=== PATIENT | male | born 1960 | race Caucasian/White ===

== ENCOUNTER 2018-08-20 10:37 | Emergency (ER) | payer MEDICARE ==
[~2018-08-20] VITALS: Ht 167.6 cm; Wt 96.0 kg
[2018-08-20] MEDS ORDERED: NEURONTIN600 M1 PO (11:08)
[2018-08-20 11:14] LABS: MEAN PLATELET VOLUME 10.8 fl (7.4-10.4); PLATELET COUNT 153 K/mm3 (130-400); RED BLOOD COUNT 3.32 M/mm3 (4.20-5.60); RED CELL DISTRIBUTION WIDTH 19.5 % (11.5-14.5); WHITE BLOOD COUNT 10.5 K/mm3 (4.8-10.8)
[2018-08-20 11:18] LABS: HEMATOCRIT 22.1 % (42.0-52.0); MEAN CELL VOLUME 67 fl (78-100); MEAN CORPUSCULAR HEMOGLOBIN 18 pg (27-31); MEAN CORPUSCULAR HGB CONC 27 g/dL (33-37)
[2018-08-20 11:24] LABS: PROTHROMBIN TIME 12.3 SECONDS (9.0-12.0)
[2018-08-20 11:27] LABS: ALBUMIN 3.4 g/dL (3.5-5.0); CALCIUM 8.8 mg/dL (8.4-10.2); POTASSIUM 3.6 mmol/L (3.6-5.0); TOTAL BILIRUBIN 1.2 mg/dL (0.2-1.3); TOTAL PROTEIN 7.7 g/dL (6.3-8.2)
[2018-08-20 11:39] LABS: LYMPHOCYTE 12 % (20-51); MONOCYTE 13 % (3-10); NEUTROPHILS 75 % (42-75)
[2018-08-20 11:40] LABS: HYPOCHROMIA 2+; MICROCYTOSIS 2+; POLYCHROMASIA 1+; TARGET CELLS 2+
[2018-08-20 11:41] LABS: TROPONIN-I < 0.03 ng/mL (0.00-0.06)
[2018-08-20 11:43] LABS: URINE APPEARANCE CLEAR; URINE BILIRUBIN NEGATIVE (NEGATIVE); URINE BLOOD NEGATIVE (NEGATIVE); URINE COLOR YELLOW; URINE GLUCOSE NEGATIVE (NEGATIVE); URINE KETONE NEGATIVE (NEGATIVE); URINE LEUKOCYTE ESTERASE NEGATIVE (NEGATIVE); URINE NITRATE NEGATIVE (NEGATIVE); URINE PROTEIN(semi-quant) TRACE mg/dL (NEGATIVE); URINE UROBILINOGEN NORMAL (NORMAL); URINE WBC 0-1 /hpf (0-3)
[2018-08-20 14:42] VITALS: BP 155/55
== END 2018-08-20 14:31 | disposition short-term general hospital (02) ==
LOC: ED 10:37
PROVIDERS: Nurse Practitioner Primary Care
DX: K76.89 Other specified diseases of liver (principal); D64.9 Anemia, unspecified; R18.8 Other ascites; R06.02 Shortness of breath; M10.9 Gout, unspecified; M06.9 Rheumatoid arthritis, unspecified; R00.0 Tachycardia, unspecified
CPT/HCPCS: J2060; J3411; J3490; J7030; Q9967

== ENCOUNTER 2020-09-23 11:03 | Outpatient (RCR) | payer MEDICARE ==
[2020-09-11 11:37] VITALS: BP 134/68
[2020-09-12 11:21] VITALS: BP 113/67
[2020-09-13 11:30] VITALS: BP 112/68
[2020-09-14 10:10] VITALS: BP 121/56
[2020-09-15 11:16] VITALS: BP 160/83
[2020-09-16 11:17] VITALS: BP 157/73
[2020-09-17 11:12] VITALS: BP 145/68
[2020-09-18 11:33] VITALS: BP 155/68
[2020-09-19 11:17] VITALS: BP 142/82
[2020-09-20 11:25] VITALS: BP 129/65
[2020-09-21 11:28] VITALS: BP 117/66
[2020-09-22 11:17] VITALS: BP 123/67
[~2020-09-23] VITALS: Ht 167.6 cm; Wt 84.1 kg
[~2020-09-23 11:03] MED LIST: ACETAMINOPHEN-H1 TA2 PO; BLUE-EMU LIDOC1 EACH TP; DESYREL50 MG PO; ENBREL50 MG/ML SQ; GABAPENTIN TAB600 MG PO; NEURONTIN600 M1 PO; OMEPRAZOLE40 MG PO; PREDNISONE10 MG PO; SLOW-MAG 106 MG1 ECT PO; SPIRONOLACTONE50 M1 PO; TRAMADOL 50 MG TAB PO
[2020-09-23 11:32] VITALS: BP 108/66
--- NOTE | 2020-09-23 11:39 | NUR ---
CALL TO 'S OFFICE PER PT REQUEST TO OBTAIN ORDERS TO DC PICC LINE, UNABLE TO REACH PROVIDER AT THIS TIME, CALLBACK NUMBER LEFT
== END 2020-09-27 ==
LOC: AMSURD
DX: Z45.2 Encounter for adjustment and management of vascular access device (principal); N17.9 Acute kidney failure, unspecified; G92 Toxic encephalopathy; A40.1 Sepsis due to streptococcus, group B; R65.20 Severe sepsis without septic shock
CPT/HCPCS: J0696

== ENCOUNTER 2021-04-03 21:43 | Emergency (ER) | payer MEDICARE ==
[2021-04-03 22:54] LABS: BASO # 0.02 (0.02-0.10); EOS # 0.33 (0.04-0.40); EOS % 6.2 % (0.0-4.0); HEMATOCRIT 29.3 % (42.0-52.0); HEMOGLOBIN 9.4 g/dL (13.5-18.0); LYMPH# 1.01 (1.50-4.00); MEAN CELL VOLUME 95 fl (78-100); MEAN CORPUSCULAR HEMOGLOBIN 31 pg (27-31); MEAN CORPUSCULAR HGB CONC 32 g/dL (33-37); MEAN PLATELET VOLUME 10.7 fl (7.4-10.4); MONO # 0.85 (0.20-0.80); NEU # 3.04 (1.40-6.50); PLATELET COUNT 92 K/mm3 (130-400); RED BLOOD COUNT 3.08 M/mm3 (4.20-5.60); RED CELL DISTRIBUTION WIDTH 24.1 % (11.5-14.5); WHITE BLOOD COUNT 5.3 K/mm3 (4.8-10.8)
[2021-04-03 23:03] LABS: ALBUMIN 2.4 g/dL (3.5-5.0)
[2021-04-03 23:04] LABS: POTASSIUM 3.9 mmol/L (3.5-5.1)
[2021-04-03 23:05] LABS: CALCIUM 7.9 mg/dL (8.3-10.5)
[2021-04-03 23:06] LABS: TOTAL PROTEIN 6.4 g/dL (6.4-8.3)
[2021-04-03 23:08] LABS: TOTAL BILIRUBIN 2.9 mg/dL (0.2-1.2)
[2021-04-03] MEDS ORDERED: ZINC50 M3 PO (23:21)
[2021-04-03] MEDS ORDERED: NATURAL IRON65 MG PO (23:21)
[2021-04-03] MEDS ORDERED: K-TAB20 MEQ PO (23:21)
[2021-04-03] MEDS ORDERED: ZYLOPRIM100 MG PO (23:22)
[2021-04-03] MEDS ORDERED: LASIX40 M1 PO (23:22)
[2021-04-03] MEDS ORDERED: MAGNESIUM OXID400 M2 PO (23:23)
[2021-04-03] MEDS ORDERED: FOLIC ACID1 MG PO (23:24)
[2021-04-03] MEDS ORDERED: NEURONTIN300 M1 PO (23:24)
[2021-04-03] MEDS ORDERED: VITAMIN A2400 MCG PO (23:26)
[2021-04-03] MEDS ORDERED: B COMPLEX1 EACH PO (23:26)
[2021-04-03] MEDS ORDERED: ALDACTONE50 M1 PO (23:31)
[2021-04-03] MEDS ORDERED: CORGARD20 M1 PO (23:39)
[2021-04-03] MEDS ORDERED: VITAMIN D21250 MCG PO (23:39)
[2021-04-03] MEDS ORDERED: CHOLESTYRAMINE PO (23:41)
[2021-04-03 23:50] LABS: URINE WBC 0 /hpf (0-3)
[2021-04-03 23:59] LABS: URINE APPEARANCE CLEAR; URINE BILIRUBIN 1+ (NEGATIVE); URINE BLOOD TRACE (NEGATIVE); URINE COLOR YELLOW; URINE GLUCOSE NEGATIVE (NEGATIVE); URINE KETONE NEGATIVE (NEGATIVE); URINE LEUKOCYTE ESTERASE NEGATIVE (NEGATIVE); URINE NITRATE NEGATIVE (NEGATIVE); URINE PROTEIN(semi-quant) NEGATIVE (NEGATIVE); URINE UROBILINOGEN NORMAL (NORMAL)
[2021-04-04 04:08] VITALS: BP 149/74
== END 2021-04-04 04:08 | disposition short-term general hospital (02) ==
LOC: ED 21:43
PROVIDERS: Nurse Practitioner Family
DX: K80.20 Calculus of gallbladder without cholecystitis without obstruction (principal); K29.70 Gastritis, unspecified, without bleeding; R94.5 Abnormal results of liver function studies; R18.8 Other ascites; K74.60 Unspecified cirrhosis of liver; K21.9 Gastro-esophageal reflux disease without esophagitis; K72.90 Hepatic failure, unspecified without coma; G89.29 Other chronic pain; Z79.899 Other long term (current) drug therapy
CPT/HCPCS: C9113; J2270; J2405; J7030; Q9967